=== PATIENT | male | born 1975 | race Caucasian/White ===

== ENCOUNTER → 2016-10-22 | Outpatient (CLI) | payer OTHER ==
[2016-10-24 00:08] LABS: PSA TOTAL 0.3 ng/mL (0.0-4.0)
== END ==
LOC: M WUC 10:13
PROVIDERS: ATTEND Nurse Practitioner Family
DX: E29.1 Testicular hypofunction (principal)

== ENCOUNTER → 2017-01-02 | Outpatient (REF) | payer OTHER ==
[2017-01-02 19:51] LABS: ALBUMIN/GLOBULIN RATIO 1.25 (1.00-1.93); ALKALINE PHOSPHATASE 51 U/L (45-117); ALT/SGPT 48 U/L (12-78); ANION GAP 4 MEQ/L (8-16); AST/SGOT 22 U/L (15-37); BILIRUBIN,TOTAL 0.6 MG/DL (0.2-1.0); BLOOD UREA NITROGEN 14 MG/DL (7-18); CALCIUM LEVEL 8.7 MG/DL (8.5-10.1); CARBON DIOXIDE LEVEL 31 MEQ/L (21-32); CHLORIDE LEVEL 105 MEQ/L (98-107); CHOLESTEROL LEVEL 213 MG/DL (<200); CREATININE FOR GFR 0.93 MG/DL (0.70-1.30); GLOMERULAR FILTRATION RATE > 60.0 (>60); GLUCOSE, FASTING 93 MG/DL (70-105); POTASSIUM SERUM 4.7 MEQ/L (3.5-5.1); SODIUM LEVEL 140 MEQ/L (136-145); TOTAL PROTEIN 7.2 GM/DL (6.4-8.2); TRIGLYCERIDES LEVEL 131 MG/DL (<150)
== END ==
LOC: M LAB REF 14:00
PROVIDERS: ATTEND Nurse Practitioner Family
DX: I10 Essential (primary) hypertension (principal); E29.1 Testicular hypofunction

== ENCOUNTER → 2017-04-20 | Outpatient (CLI) | payer OTHER ==
[2017-04-20 12:33] LABS: BASO # 0.1 K/mm3 (0.0-0.2); BASO % 0.7 % (0.0-1.0); EOS # 0.4 K/mm3 (0.0-0.50); EOS % 5.3 % (0.0-3.0); LARGE UNSTAINED CELL # 0.1 K/mm3 (0.0-0.4); LARGE UNSTAINED CELL % 1.7 % (0.0-4.0); LYMPH # 2.3 K/mm3 (1.5-4.5); LYMPH % 27.7 % (24.0-44.0); MEAN CORPUSCULAR HEMOGLOBIN 33.4 pg (27.0-33.0); MEAN CORPUSCULAR HGB CONC 34.3 g/dl (32.0-36.5); MEAN CORPUSCULAR VOLUME 97.5 fl (80.0-96.0); MONO # 0.5 K/mm3 (0.0-0.8); MONO % 5.4 % (0.0-5.0); NEUTROPHILS # 4.9 K/mm3 (1.8-7.7); NEUTROPHILS % 59.2 % (36.0-66.0); PLATELET COUNT, AUTOMATED 228 k/mm3 (150-450); RED CELL DISTRIBUTION WIDTH 12.2 % (11.5-14.5); WHITE BLOOD COUNT 8.2 K/mm3 (4.0-10.0)
[2017-04-20 12:53] LABS: ALBUMIN/GLOBULIN RATIO 1.18 (1.00-1.93); ALKALINE PHOSPHATASE 50 U/L (45-117); ALT/SGPT 35 U/L (12-78); ANION GAP 7 MEQ/L (8-16); AST/SGOT 27 U/L (15-37); BILIRUBIN,TOTAL 0.5 MG/DL (0.2-1.0); BLOOD UREA NITROGEN 13 MG/DL (7-18); CALCIUM LEVEL 8.9 MG/DL (8.5-10.1); CARBON DIOXIDE LEVEL 27 MEQ/L (21-32); CHLORIDE LEVEL 104 MEQ/L (98-107); CHOLESTEROL LEVEL 212 MG/DL (<200); CREATININE FOR GFR 0.94 MG/DL (0.70-1.30); GLOMERULAR FILTRATION RATE > 60.0 (>60); GLUCOSE, FASTING 85 MG/DL (70-105); POTASSIUM SERUM 4.4 MEQ/L (3.5-5.1); SODIUM LEVEL 138 MEQ/L (136-145); TOTAL PROTEIN 7.4 GM/DL (6.4-8.2); TRIGLYCERIDES LEVEL 145 MG/DL (<150)
[2017-04-21 14:14] LABS: PSA TOTAL 0.5 ng/mL (0.0-4.0)
== END ==
LOC: M WUC 10:10
PROVIDERS: ATTEND Nurse Practitioner Family
DX: I10 Essential (primary) hypertension (principal); E29.1 Testicular hypofunction

== ENCOUNTER → 2017-08-18 | Outpatient (CLI) | payer OTHER ==
[2017-08-21 00:09] LABS: TESTOSTERONE FREE (DIRECT) 10.5 pg/mL (6.8-21.5)
== END ==
LOC: M WUC 12:21
DX: E29.1 Testicular hypofunction (principal)

== ENCOUNTER → 2018-12-06 | Outpatient (CLI) | payer OTHER ==
[2018-12-06 16:52] LABS: BASO # 0.1 10^3/uL (0.0-0.2); BASO % 0.6 % (0.0-1.0); EOS # 0.5 10^3/uL (0.0-0.50); EOS % 4.9 % (0.0-3.0); HEMATOCRIT 46.6 % (42.0-52.0); HEMOGLOBIN 15.8 g/dl (13.5-17.5); LYMPH % 31.6 % (24.0-44.0); MEAN CORPUSCULAR HEMOGLOBIN 31.8 pg (27.0-33.0); MEAN CORPUSCULAR HGB CONC 33.9 g/dl (32.0-36.5); MEAN CORPUSCULAR VOLUME 93.8 fl (80.0-96.0); MONO # 0.7 10^3/uL (0.0-0.8); MONO % 7.5 % (0.0-5.0); NEUTROPHILS # 5.1 10^3/uL (1.8-7.7); NEUTROPHILS % 55.1 % (36.0-66.0); PLATELET COUNT, AUTOMATED 299 10^3/uL (150-450); RED BLOOD COUNT 4.97 10^6/uL (4.30-6.10); WHITE BLOOD COUNT 9.3 10^3/uL (4.0-10.0)
[2018-12-06 17:11] LABS: ALT/SGPT 37 U/L (12-78); BILIRUBIN,TOTAL 1.1 MG/DL (0.2-1.0); BLOOD UREA NITROGEN 14 MG/DL (7-18); CALCIUM LEVEL 8.9 MG/DL (8.5-10.1); CARBON DIOXIDE LEVEL 28 MEQ/L (21-32); CHLORIDE LEVEL 107 MEQ/L (98-107); CHOLESTEROL LEVEL 251 MG/DL (<200); CHOLESTEROL RISK RATIO 5.837 (<5); CREATININE FOR GFR 0.93 MG/DL (0.70-1.30); GLOMERULAR FILTRATION RATE > 60.0 (>60); GLUCOSE, FASTING 81 MG/DL (70-100); HDL CHOLESTEROL 43 MG/DL (>40); LDL CHOLESTEROL 189 MG/DL (<100); NON-HDL-C 208 MG/DL; POTASSIUM SERUM 4.4 MEQ/L (3.5-5.1); SODIUM LEVEL 141 MEQ/L (136-145); TOTAL PROTEIN 7.1 GM/DL (6.4-8.2); TRIGLYCERIDES LEVEL 94 MG/DL (<150)
[2018-12-10 00:06] LABS: PSA TOTAL 0.4 ng/mL (0.0-4.0); TESTOSTERONE FREE (DIRECT) 7.3 pg/mL (6.8-21.5)
== END ==
LOC: M WUC 15:37
PROVIDERS: ATTEND Nurse Practitioner Family
DX: I10 Essential (primary) hypertension (principal); E29.1 Testicular hypofunction; E78.5 Hyperlipidemia, unspecified

== ENCOUNTER → 2018-12-19 | Outpatient (CLI) | payer OTHER ==
[2018-12-21 00:06] LABS: TESTOSTERONE FREE (DIRECT) 7.4 pg/mL (6.8-21.5)
== END ==
LOC: M WUC 08:10
PROVIDERS: ATTEND Nurse Practitioner Family
DX: E29.1 Testicular hypofunction (principal)

== ENCOUNTER → 2019-08-07 | Outpatient (REF) | payer OTHER ==
[2019-08-11 00:06] LABS: TESTOSTERONE FREE (DIRECT) 9.2 pg/mL (6.8-21.5)
== END ==
LOC: M LAB REF 16:58
PROVIDERS: ATTEND Nurse Practitioner Adult Health
DX: E29.1 Testicular hypofunction (principal)

== ENCOUNTER → 2019-11-08 | Outpatient (CLI) | payer OTHER ==
[2019-11-08 16:16] LABS: HEMATOCRIT 53.3 % (42.0-52.0); HEMOGLOBIN 17.3 g/dl (13.5-17.5)
== END ==
LOC: M WUC 13:57
PROVIDERS: ATTEND Nurse Practitioner Family
DX: E29.1 Testicular hypofunction (principal)

== ENCOUNTER → 2019-12-16 | Outpatient (CLI) | payer OTHER ==
[2019-12-16 19:56] LABS: HEMATOCRIT 51.3 % (42.0-52.0)
== END ==
LOC: M WUC 13:28
PROVIDERS: ATTEND Nurse Practitioner Family
DX: Z12.5 Encounter for screening for malignant neoplasm of prostate (principal); E29.1 Testicular hypofunction
CPT/HCPCS: 36415; 84402; 84403; 85014; 85018; G0103

== ENCOUNTER → 2020-02-17 | Outpatient (CLI) | payer OTHER ==
[2020-02-17 13:04] LABS: BLOOD UREA NITROGEN 15 MG/DL (7-18); CALCIUM LEVEL 9.1 MG/DL (8.5-10.1); CARBON DIOXIDE LEVEL 28 MEQ/L (21-32); CHLORIDE LEVEL 106 MEQ/L (98-107); CHOLESTEROL LEVEL 220 MG/DL (<200); CHOLESTEROL RISK RATIO 5.945 (<5); CREATININE FOR GFR 0.91 MG/DL (0.70-1.30); GLOMERULAR FILTRATION RATE > 60.0 (>60); GLUCOSE, FASTING 80 MG/DL (70-100); HDL CHOLESTEROL 37 MG/DL (>40); LDL CHOLESTEROL 162 MG/DL (<100); NON-HDL-C 183 MG/DL; POTASSIUM SERUM 4.8 MEQ/L (3.5-5.1); SODIUM LEVEL 138 MEQ/L (136-145); TRIGLYCERIDES LEVEL 105 MG/DL (<150)
[2020-02-19 12:41] LABS: TESTOSTERONE 266 NG/DL (241-827)
== END ==
LOC: M WUC 08:40
PROVIDERS: ATTEND Registered Nurse
DX: I10 Essential (primary) hypertension (principal)

== ENCOUNTER → 2020-10-09 | Outpatient (CLI) | payer OTHER ==
[~2020-10-09] MED LIST: ARGI500T3 PO; GREE250C2 PO; LOSA50TA88 PO; RA T500C2 PO; TESTPOW5 IMPLANT
== END ==
LOC: M LABSMTC 09:58
PROVIDERS: ATTEND Anesthesiology
DX: Z01.812 Encounter for preprocedural laboratory examination (principal); Z20.822 Contact with and (suspected) exposure to COVID-19

== ENCOUNTER 2020-10-14 12:48 | Day surgery (SDC) | payer OTHER ==
[~2020-10-14] VITALS: Ht 165.1 cm; Wt 114.8 kg
[~2020-10-14 12:48] MED LIST changes: +NS 1,000 ML IV ONE
--- NOTE | 2020-10-14 14:30 | ROOR ---
Patient Name: Kalen Bobby Procedure Date: 10/14/2020 2:08 PM Date of : 1975 Age: 44 Room: [facility] Gender: Male Note Status: Finalized Procedure: Total Colonoscopy to Cecum + Cold Snare Polypectomy + Hemoclips Indications: Abdominal pain in the left lower quadrant Providers: Santi Hudson MD Referring MD: Hoa Loja NP Requesting Provider: Medicines: Monitored Anesthesia Care Complications: No immediate complications. Procedure: Pre-Anesthesia Assessment: - The heart rate, respiratory rate, oxygen saturations, blood pressure, adequacy of pulmonary ventilation, and response to care were monitored throughout the procedure. The Colonoscope was introduced through the anus and advanced to the cecum, identified by appendiceal orifice and ileocecal valve. The colonoscopy was performed without difficulty. The patient tolerated the procedure well. The quality of the bowel preparation was good. Findings: The perianal and digital rectal examinations were normal. A small polyp was found at 20 cm proximal to the anus. The polyp was sessile. The polyp was removed with a cold snare. Resection and retrieval were complete. To prevent bleeding after the polypectomy, two hemostatic clips were successfully placed (MR conditional). There was no bleeding at the end of the procedure. The exam was otherwise without abnormality on direct and retroflexion views. Impression: - One small polyp at 20 cm proximal to the anus, removed with a cold snare. Resected and retrieved. Clips (MR conditional) were placed. - The examination was otherwise normal on direct and retroflexion views. - The exam was otherwise normal to the cecum. Recommendation: - Patient has a contact number available for emergencies. The signs and symptoms of potential delayed complications were discussed with the patient. Return to normal activities tomorrow. Written discharge instructions were provided to the patient. - High fiber diet. - Discharge patient to home. - Continue present medications. - Await pathology results. - Telephone GI clinic for pathology results in 1 week. - Repeat colonoscopy in 5 years for surveillance. - Return to referring physician. - The findings and recommendations were discussed with the patient. Procedure Code(s): --- Professional --- 69208, Colonoscopy, flexible; with removal of tumor(s), polyp(s), or other lesion(s) by snare technique Diagnosis Code(s): --- Professional --- K63.5, Polyp of colon R10.32, Left lower quadrant pain CPT copyright 2019 [employer]. All rights reserved. The codes documented in this report are preliminary and upon functional support analyst review may be revised to meet current compliance requirements. Santi Hudson MD Santi Hudson MD 10/14/2020 2:30:34 PM Electronically signed by Santi Hudson MD Number of Addenda: 0 Note Initiated On: 10/14/2020 2:08 PM Estimated Blood Loss: Estimated blood loss: none.
[2020-10-14] MEDS ORDERED: LIDOCAINE 2% 100MG/5ML SDV (FOR ANES.) As Ordered ONE (14:31)
[2020-10-14] MEDS ORDERED: propofoL 200 MG/20 ML VIAL As Ordered ONE (14:31)
[2020-10-14 14:55] VITALS: BP 138/82
== END 2020-10-14 15:11 | disposition home or self-care (01) ==
LOC: M OPP 12:48
PROVIDERS: ATTEND Internal Medicine Gastroenterology
DX: R10.32 Left lower quadrant pain (principal); D12.6 Benign neoplasm of colon, unspecified; I10 Essential (primary) hypertension; Z88.1 Allergy status to other antibiotic agents; Z79.899 Other long term (current) drug therapy

== ENCOUNTER → 2022-07-09 | Outpatient (CLI) | payer OTHER ==
[~2022-07-09] MED LIST changes: +LOSA50TA28 PO; -LOSA50TA88 PO; -NS 1,000 ML IV ONE
== END ==
LOC: M WUC 15:53
PROVIDERS: ATTEND Nurse Practitioner Adult Health
DX: E29.1 Testicular hypofunction (principal)

== ENCOUNTER → 2022-11-10 | Outpatient (CLI) | payer OTHER | LOC: M WUC 12:57 | PROVIDERS: ATTEND Obstetrics & Gynecology | DX: E29.1 Testicular hypofunction (principal) ==

== ENCOUNTER → 2023-03-31 | Outpatient (REF) | payer OTHER | LOC: M LAB REF 16:21 | PROVIDERS: ATTEND Nurse Practitioner Adult Health | DX: E29.1 Testicular hypofunction (principal) ==

== ENCOUNTER → 2023-06-09 | Outpatient (REF) | payer OTHER ==
[2023-06-09 17:22] LABS: APPEARANCE, URINE CLEAR (CLEAR); BACTERIA, URINE AUTO NEGATIVE (NEGATIVE); BILIRUBIN, URINE AUTO NEGATIVE (NEGATIVE); BLOOD, URINE BLOOD NEGATIVE (NEGATIVE); CALCIUM OXALATE CRYSTALS SMALL; COLOR, URINE YELLOW (YELLOW); GLUCOSE, URINE (UA) AUTO NEGATIVE (NEGATIVE); KETONE, URINE AUTO TRACE mg/dL (NEGATIVE); LEUKOCYTE ESTERASE, URINE AUTO NEGATIVE (NEGATIVE); MUCUS, URINE SMALL (NEGATIVE); NITRITE, URINE AUTO NEGATIVE (NEGATIVE); PROTEIN, URINE AUTO NEGATIVE (NEGATIVE); RBC, URINE AUTO 3 /HPF (0-3); SPECIFIC GRAVITY URINE AUTO 1.024 (1.002-1.035); SQUAMOUS EPITHELIAL CELL UR AU 0 /HPF (0-6); WBC, URINE AUTO 0 /HPF (0-3)
[2023-06-09 17:24] LABS: INR 1.09; PROTHROMBIN TIME 13.8 SECONDS (12.5-14.5)
[2023-06-09 17:25] LABS: PARTIAL THROMBOPLASTIN TIME 30.1 SECONDS (24.8-34.2)
== END ==
LOC: M LAB REF 16:17
PROVIDERS: ATTEND Internal Medicine
DX: Z01.810 Encounter for preprocedural cardiovascular examination (principal)

== ENCOUNTER → 2023-09-10 | Outpatient (REF) | payer OTHER ==
[2023-09-11 10:12] LABS: TESTOSTERONE FREE (DIRECT) 9.2 pg/mL (6.8-21.5)
== END ==
LOC: M LAB REF 12:14
PROVIDERS: ATTEND Nurse Practitioner Adult Health
DX: E29.1 Testicular hypofunction (principal)

== ENCOUNTER → 2024-03-22 | Outpatient (REF) | payer OTHER | LOC: M LAB REF 16:17 | PROVIDERS: ATTEND Nurse Practitioner Adult Health | DX: E29.1 Testicular hypofunction (principal) ==

== ENCOUNTER → 2025-04-04 | Outpatient (REF) | payer OTHER ==
[~2025-04-04] MED LIST changes: -RA T500C2 PO; +TURM500C10 PO
[2025-04-09 15:33] LABS: TESTOSTERONE FREE (DIRECT) 91.9 pg/mL (35.0-155.0); TESTOSTERONE TOTAL FOR T&D 497.0 ng/dL (250-1100)
== END ==
LOC: M LAB REF 14:34
PROVIDERS: ATTEND Nurse Practitioner Adult Health
DX: E29.1 Testicular hypofunction (principal)

== ENCOUNTER 2025-05-07 13:19 | Day surgery (SDC) | payer OTHER ==
[~2025-05-07] VITALS: Ht 165.1 cm; Wt 92.5 kg
[~2025-05-07 13:19] MED LIST changes: +ROSU10TA61 PO; +TIRZ15PE3 SC; +[UNRECOGNIZED DRUG - CODE] SC
[2025-05-07 14:54] VITALS: TEMP 98
[2025-05-07 15:15] VITALS: BP 105/59; O2SAT 97
== END 2025-05-07 15:22 | disposition home or self-care (01) ==
LOC: M OPP 13:19
PROVIDERS: ATTEND Internal Medicine Gastroenterology
DX: K63.5 Polyp of colon (principal); K64.0 First degree hemorrhoids; Z86.0100 Personal history of colon polyps, unspecified; G47.30 Sleep apnea, unspecified; Z88.0 Allergy status to penicillin; Z88.1 Allergy status to other antibiotic agents; Z79.85 Long-term (current) use of injectable non-insulin antidiabetic drugs; Z79.899 Other long term (current) drug therapy